=== PATIENT | male | born 1975 | race Two or more races ===

== ENCOUNTER 2019-03-06 03:26 | Emergency (ER) | payer SELFPAY ==
[2019-03-06] MEDS ORDERED: cloNIDine HCL 0.1 MG TAB ONE (03:40)
== END 2019-03-06 05:27 | disposition left against medical advice (07) ==
LOC: ER 03:30
DX: R22.0 Localized swelling, mass and lump, head (principal); Z53.21 Procedure and treatment not carried out due to patient leaving prior to being seen by health care provider; V43.52XA Car driver injured in collision with other type car in traffic accident, initial encounter; Y93.89 Activity, other specified; Y99.8 Other external cause status; Y92.410 Unspecified street and highway as the place of occurrence of the external cause